=== PATIENT | female | born 1930 | race Caucasian/White ===

== ENCOUNTER 2018-08-30 17:06 | Inpatient (IN) | payer OTHER ==
[~2018-08-30] VITALS: Ht 154.9 cm; Wt 49.0 kg
[2018-08-30] MEDS ORDERED: GABAPENTIN100 MG (18:18)
[2018-08-30] MEDS ORDERED: CARBIDOPA25 MG (18:18)
[2018-08-30] MEDS ORDERED: VITAMIN B-121000 MC4 (18:19)
[2018-08-30] MEDS ORDERED: ACID CONTROL150 MG (18:21)
[2018-08-30] MEDS ORDERED: REQUIP2 MG (18:21)
[2018-08-30] MEDS ORDERED: OMEPRAZOLE40 MG (18:22)
[2018-08-30] MEDS ORDERED: ETODOLAC400 MG (18:22)
[2018-08-30] MEDS ORDERED: MAGNESIUM250 M1 (18:22)
[2018-08-30] MEDS ORDERED: SERTRALINE HCL25 MG (18:23)
[2018-08-30] MEDS ORDERED: TRAMADOL HCL50 MG (18:23)
[2018-08-30] MEDS ORDERED: LEVOTHYROXINE112 MCG (18:23)
[2018-08-30] MEDS ORDERED: ATIVAN0.5 MG (18:24)
[2018-09-09] MEDS ORDERED: ULTRAM50 MG PO (11:19)
[2018-09-09] MEDS ORDERED: AMOX-CLAV 500-1 EACH PO (11:20)
[2018-09-09] MEDS ORDERED: INTESTINEX680 M1 PO (11:20)
== END 2018-09-09 14:18 | disposition home or self-care (01) | DRG 329 ==
LOC: ER 17:06 → ICU-2 08-31 07:50 → SURH 08-31 07:50 → ICU 08-31 07:50 → O/R 08-31 07:50 → SURG 08-31 19:37 → ICU 08-31 19:56 → SURH 09-03 15:00
PROVIDERS: ADMIT Surgery
PROC: 0DJD8ZZ Inspection of Lower Intestinal Tract, Via Natural or Artificial Opening Endoscopic (ICD-10-PCS; 2018-08-31)
PROC: BW21YZZ Computerized Tomography (CT Scan) of Abdomen and Pelvis using Other Contrast (ICD-10-PCS; 2018-08-31)
PROC: 30233N1 Transfusion of Nonautologous Red Blood Cells into Peripheral Vein, Percutaneous Approach (ICD-10-PCS; 2018-08-31)
PROC: 0DTN0ZZ Resection of Sigmoid Colon, Open Approach (ICD-10-PCS; principal; 2018-08-31 12:00)
DX: K57.20 Diverticulitis of large intestine with perforation and abscess without bleeding (principal); K25.6 Chronic or unspecified gastric ulcer with both hemorrhage and perforation; D50.0 Iron deficiency anemia secondary to blood loss (chronic); G20 Parkinson's disease; E03.8 Other specified hypothyroidism

== ENCOUNTER 2018-12-29 12:51 | Emergency (ER) | payer OTHER ==
[~2018-12-29] VITALS: Ht 152.4 cm; Wt 49.9 kg
[~2018-12-29 12:51] MED LIST: ACID CONTROL150 MG; AMOX-CLAV 500-1 EACH PO; ATIVAN0.5 MG; CARBIDOPA25 MG; ETODOLAC400 MG; GABAPENTIN100 MG; INTESTINEX680 M1 PO; LEVOTHYROXINE112 MCG; MAGNESIUM250 M1; OMEPRAZOLE40 MG; REQUIP2 MG; SERTRALINE HCL25 MG; TRAMADOL HCL50 MG; ULTRAM50 MG PO; VITAMIN B-121000 MC4
[2018-12-29] MEDS ORDERED: LEVSIN0.125 MG (13:36)
[2018-12-29] MEDS ORDERED: SEROQUEL25 MG (13:37)
[2018-12-29] MEDS ORDERED: ELDEPRYL5 MG (13:37)
== END 2018-12-29 17:39 | disposition home or self-care (01) ==
LOC: ER 12:51
DX: S90.111A Contusion of right great toe without damage to nail, initial encounter (principal); W22.8XXA Striking against or struck by other objects, initial encounter; Y93.89 Activity, other specified; Y92.098 Other place in other non-institutional residence as the place of occurrence of the external cause; Y99.8 Other external cause status

== ENCOUNTER → 2018-12-31 | Emergency (ER) | payer OTHER ==
[~2018-12-31] VITALS: Ht 149.9 cm; Wt 49.0 kg
[~2018-12-31] MED LIST changes: +ELDEPRYL5 MG; +LEVSIN0.125 MG; +SEROQUEL25 MG
== END | disposition home or self-care (01) ==
LOC: ER 20:24
DX: M79.674 Pain in right toe(s) (principal); S90.111D Contusion of right great toe without damage to nail, subsequent encounter; W22.8XXD Striking against or struck by other objects, subsequent encounter

== ENCOUNTER 2019-03-05 13:11 | Emergency (ER) | payer OTHER ==
[~2019-03-05] VITALS: Ht 152.4 cm; Wt 46.3 kg
== END 2019-03-05 15:01 | disposition home or self-care (01) ==
LOC: ER 13:11
DX: S00.83XA Contusion of other part of head, initial encounter (principal); W18.09XA Striking against other object with subsequent fall, initial encounter; Y93.89 Activity, other specified; Y92.018 Other place in single-family (private) house as the place of occurrence of the external cause; Y99.8 Other external cause status

== ENCOUNTER 2019-05-05 13:48 | Emergency (ER) | payer OTHER ==
[~2019-05-05] VITALS: Ht 154.9 cm; Wt 52.2 kg
[2019-05-05] MEDS ORDERED: COMTAN200 MG PO ×2 (13:55)
== END 2019-05-05 14:26 | disposition home or self-care (01) ==
LOC: ER 13:48
DX: H11.31 Conjunctival hemorrhage, right eye (principal)

== ENCOUNTER 2019-06-06 19:32 | Emergency (ER) | payer OTHER ==
[~2019-06-06] VITALS: Ht 157.5 cm; Wt 50.8 kg
[~2019-06-06 19:32] MED LIST changes: +COMTAN200 MG PO
[2019-06-06] MEDS ORDERED: LOSARTAN POTAS100 MG PO (19:47)
[2019-06-06] MEDS ORDERED: PROTONIX20 MG PO (19:48)
[2019-06-06] MEDS ORDERED: ORPHENADRINE C100 MG PO (22:45)
[2019-06-06] MEDS ORDERED: CELECOXIB100 MG PO (22:45)
[2019-06-06] MEDS ORDERED: VOLTAREN100 GM TOP (22:45)
== END 2019-06-06 22:56 | disposition home or self-care (01) ==
LOC: ER 19:32
DX: S22.32XA Fracture of one rib, left side, initial encounter for closed fracture (principal); S00.83XA Contusion of other part of head, initial encounter; S80.02XA Contusion of left knee, initial encounter; R42 Dizziness and giddiness; R10.12 Left upper quadrant pain; W18.09XA Striking against other object with subsequent fall, initial encounter; Y93.9 Activity, unspecified; Y92.018 Other place in single-family (private) house as the place of occurrence of the external cause; Y99.8 Other external cause status

== ENCOUNTER 2019-07-11 15:13 | Emergency (ER) | payer OTHER ==
[~2019-07-11] VITALS: Ht 157.5 cm; Wt 49.9 kg
[~2019-07-11 15:13] MED LIST changes: +CELECOXIB100 MG PO; +LOSARTAN POTAS100 MG PO; +ORPHENADRINE C100 MG PO; +PROTONIX20 MG PO; +VOLTAREN100 GM TOP
[2019-07-11] MEDS ORDERED: DICY20TA PO (15:27)
== END 2019-07-11 17:50 | disposition home or self-care (01) ==
LOC: ER 15:13
DX: K29.60 Other gastritis without bleeding (principal)

== ENCOUNTER 2020-10-06 05:00 | Day surgery (SDC) | payer OTHER ==
[~2020-10-06 05:00] MED LIST changes: +DICY20TA PO; +LEVOTHY PO; +NORFLEX100MG PO; +PANTOPRA PO; +QUETIA PO; +SUCRA PO
== END 2020-10-06 14:50 | disposition home or self-care (01) ==
LOC: CIR.AMB 05:00
PROVIDERS: ATTEND Orthopaedic Surgery Hand Surgery
DX: S42.221A 2-part displaced fracture of surgical neck of right humerus, initial encounter for closed fracture (principal); M75.101 Unspecified rotator cuff tear or rupture of right shoulder, not specified as traumatic; Z20.822 Contact with and (suspected) exposure to COVID-19
CPT/HCPCS: 26615; 11043; C1776